=== PATIENT | male | born 1945 ===

== ENCOUNTER 2020-09-14 02:27 | Inpatient (IN) | payer MEDICARE, OTHER ==
[~2020-09-14] VITALS: Ht 177.8 cm; Wt 75.9 kg
[2020-09-14] MEDS ORDERED: FOLI-130 PO (03:11)
[2020-09-14] MEDS ORDERED: ASPI-1450 PO (03:11)
[2020-09-14] MEDS ORDERED: GABA-1201 PO (03:11)
[2020-09-14] MEDS ORDERED: ATOR10TA84 PO (03:11)
[2020-09-14] MEDS ORDERED: RISP2TAB45 PO (03:11)
[2020-09-14] MEDS ORDERED: MULT-1203 PO (03:11)
[2020-09-14] MEDS ORDERED: APIX5TAB PO (03:11)
[2020-09-14] MEDS ORDERED: DIVA-111 PO (03:11)
[2020-09-14] MEDS ORDERED: METH10 PO (03:11)
[2020-09-14] MEDS ORDERED: TIMO.25OS OU (03:11)
[2020-09-14 03:22] LABS: COVID AG,FIA SOURCE NASOPHARYNGEAL
[2020-09-14] MEDS ORDERED: 0.9% SODIUM CHLORIDE 10 ML SYRINGE IVP PRN ×2 (03:30→07:45)
[2020-09-14 04:30] LABS: BASOPHILS % (AUTO) 0.6 % (0.0-2.0); HEMATOCRIT 36.5 % (41-53); HEMOGLOBIN 11.9 g/dL (13.5-17.5); MEAN CORPUSCULAR HGB CONC 32.5 G/dL (31.0-37.0); MEAN CORPUSCULAR VOLUME 80 fL (80-100); MONOCYTES # (AUTO) 0.8 K/uL (0.1-1.0); MONOCYTES % (AUTO) 8.9 % (2.0-9.0); NEUTROPHILS # (AUTO) 6.3 K/uL (1.8-7.7); NEUTROPHILS % (AUTO) 72.5 % (40.0-70.0); PLATELET COUNT (AUTO) 318 K/uL (150-450); RED BLOOD CELL COUNT(AUTO) 4.56 MIL/uL (4.50-5.90); RED CELL DISTRIBUTION WIDTH 16.6 % (11.5-14.5)
[2020-09-14 04:43] LABS: ANION GAP 6 mmol/L (8-16); CALCIUM, TOTAL 9.5 mg/dL (8.8-10.5); CARBON DIOXIDE 33 mmol/L (22-29); CHLORIDE 98 mmol/L (98-107); CREATININE 1.04 mg/dL (0.60-1.30); GLUCOSE,RANDOM 96 mg/dL (70-110); POTASSIUM 4.2 mmol/L (3.5-5.1); SODIUM SERUM 137 mmol/L (136-145); UREA NITROGEN, BLOOD 22 mg/dL (7-18)
[2020-09-14 04:47] LABS: GLOMERULAR FILTR. RATE CALC > 60 mL/min (>60)
[2020-09-14 04:49] LABS: LACTIC ACID 1.2 mmol/L (0.4-2.0)
[2020-09-14 04:55] LABS: D-DIMER 0.47 mg/L FEU (0.00-0.50); INR 1.1 (0.9-1.1); PROTHROMBIN TIME 11.4 SEC (9.4-11.6)
[2020-09-14 05:04] LABS: ALANINE AMINOTRANSFERASE 15 U/L (12-78); ALBUMIN 3.5 g/dL (3.4-5.0); ALKALINE PHOSPHATASE 136 U/L (46-116); ASPARTATE AMINOTRANSFERASE 15 U/L (15-37); BILIRUBIN,TOTAL 0.3 mg/dL (0.1-1.0); C-REACTIVE PROTEIN QUANT 1.44 mg/dL (0.00-0.30); FERRITIN 32 ng/mL (26-388); LACTATE DEHYDROGENASE 184 U/L (85-227); TOTAL PROTEIN, SERUM 8.4 g/dL (6.4-8.2)
[2020-09-14] MEDS ORDERED: ONDANSETRON HCL 4 MG/2 ML VIAL IVP PRN ×2 (07:45→12:15)
[2020-09-14] MEDS ORDERED: ACETAMINOPHEN 325 MG TABLET PO PRN ×2 (07:45→12:15)
[2020-09-14 10:27] LABS: ABG A-A DIFF O2 93.8 mmHg (10-20.0); ABG BASE EXCESS 7.4 mmol/L (-2.0-3.0); ABG HCO3 30.1 mmol/L (22.0-26.0); ABG METHEMOGLOBIN 0.2 % (0.0-1.5); ABG OXYGEN CONTENT 16.3 mL/dL (15.0-23.0); ABG OXYGEN SATURATION 94.7 % (95.0-98.0); ABG OXYHEMOGLOBIN 94.5 % (94.0-100.0); ABG PCO2 51 mmHg (35-45); ABG PH 7.418 (7.35-7.450); ABG TOTAL HEMOGLOBIN 12.2 G/dL (12.0-18.0); PO2, ARTERIAL BG 75.1 mmHg (75.0-83.0); SOURCE, BLOOD GAS ARTERIAL; TEMPERATURE, FAHRENHEIT, BG 98.8 FAHREN (96.0-98.6)
[2020-09-14 10:28] LABS: O2 DEVICE,BLOOD GAS CANNULA (ROOM AIR); SITE, BLOOD GAS RT BRACHIAL
[2020-09-14] MEDS ORDERED: ALBUTEROL SULFATE HFA 90 MCG/PUFF 8 GM INHALER IH PRN (12:15)
[2020-09-14] MEDS ORDERED: MAGNESIUM HYDROXIDE SUSPENSION 30 ML UDCUP PO PRN (12:15)
[2020-09-14] MEDS ORDERED: HYDROCODONE/ACETAMINOPHEN 5-325 MG TABLET PO PRN (12:15)
[2020-09-14] MEDS ORDERED: BISACODYL 10 MG RECTAL RECTAL SUPPOSITORY PR PRN (12:15)
[2020-09-14] MEDS ORDERED: ZOLPIDEM TARTRATE 5 MG TABLET PO PRN (12:15)
[2020-09-14] MEDS ORDERED: MORPHINE SULFATE 2 MG/ML SYRINGE IVP PRN (12:15)
[2020-09-14] MEDS ORDERED: IOHEXOL 350 MG/ML 75 ML VIAL ONE (12:27)
[2020-09-14] MEDS ORDERED: SODIUM CHLORIDE 0.9% 100 ML ONE (12:27)
[2020-09-14] MEDS: AZITHROMYCIN 500 MG TABLET PO SCH (13:37)
[2020-09-14] MEDS: GABAPENTIN 400 MG CAPSULE PO SCH ×2 (17:22→21:59)
[2020-09-14] MEDS: ASCORBIC ACID 500 MG TABLET PO SCH ×2 (17:22→22:58)
[2020-09-14] MEDS: DIVALPROEX SODIUM 250 MG DR TABLET PO SCH (21:59)
[2020-09-14 22:54] VITALS: BP 139/77
[2020-09-14] MEDS: RisperiDONE 2 MG TABLET PO SCH (22:57)
[2020-09-14] MEDS: TIMOLOL MALEATE 0.25% 5 ML OPHTHALMIC SOLUTION OU SCH (22:57)
[2020-09-14] MEDS: THIAMINE 100 MG/ML 2 ML VIAL IVP SCH (22:57)
[2020-09-14] MEDS: ZINC SULFATE 220 MG CAPSULE PO SCH (22:58)
[2020-09-14] MEDS: DOCUSATE SODIUM 100 MG CAPSULE PO SCH (22:58)
[2020-09-14] MEDS: ATORVASTATIN CALCIUM 10 MG TABLET PO SCH (22:58)
[2020-09-14] MEDS: APIXABAN 5 MG TABLET PO SCH (22:58)
[2020-09-15 04:22] VITALS: BP 125/58
[2020-09-15 06:25] LABS: BASOPHILS % (AUTO) 0.7 % (0.0-2.0); EOSINOPHILS % (AUTO) 4.7 % (1.0-6.0); HEMATOCRIT 35.5 % (41-53); HEMOGLOBIN 11.4 g/dL (13.5-17.5); LYMPHOCYTES # (AUTO) 1.4 K/uL (1.0-4.8); LYMPHOCYTES % (AUTO) 17.2 % (22.0-44.0); MEAN CORPUSCULAR HEMOGLOBIN 25.9 pg (26.0-34.0); MEAN CORPUSCULAR HGB CONC 32.1 G/dL (31.0-37.0); MEAN CORPUSCULAR VOLUME 81 fL (80-100); MONOCYTES # (AUTO) 0.8 K/uL (0.1-1.0); MONOCYTES % (AUTO) 10.6 % (2.0-9.0); NEUTROPHILS # (AUTO) 5.3 K/uL (1.8-7.7); NEUTROPHILS % (AUTO) 66.8 % (40.0-70.0); PLATELET COUNT (AUTO) 297 K/uL (150-450); RED BLOOD CELL COUNT(AUTO) 4.41 MIL/uL (4.50-5.90); RED CELL DISTRIBUTION WIDTH 16.8 % (11.5-14.5)
[2020-09-15 07:04] LABS: ALANINE AMINOTRANSFERASE 13 U/L (12-78); ALKALINE PHOSPHATASE 130 U/L (46-116); ANION GAP 4 mmol/L (8-16); ASPARTATE AMINOTRANSFERASE 17 U/L (15-37); BILIRUBIN,TOTAL 0.3 mg/dL (0.1-1.0); C-REACTIVE PROTEIN QUANT 1.44 mg/dL (0.00-0.30); CALCIUM, TOTAL 9.2 mg/dL (8.8-10.5); CARBON DIOXIDE 31 mmol/L (22-29); CHLORIDE 100 mmol/L (98-107); CREATININE 1.02 mg/dL (0.60-1.30); FERRITIN 29 ng/mL (26-388); GLOMERULAR FILTR. RATE CALC > 60 mL/min (>60); GLUCOSE,RANDOM 89 mg/dL (70-110); POTASSIUM 4.3 mmol/L (3.5-5.1); SODIUM SERUM 135 mmol/L (136-145); TOTAL PROTEIN, SERUM 7.3 g/dL (6.4-8.2); UREA NITROGEN, BLOOD 20 mg/dL (7-18)
[2020-09-15 07:40] VITALS: BP 126/70
[2020-09-15] MEDS: AZITHROMYCIN 500 MG TABLET PO SCH (09:05)
[2020-09-15] MEDS: ZINC SULFATE 220 MG CAPSULE PO SCH ×2 (09:05→20:46)
[2020-09-15] MEDS: DOCUSATE SODIUM 100 MG CAPSULE PO SCH ×2 (09:05→20:45)
[2020-09-15] MEDS: ASCORBIC ACID 500 MG TABLET PO SCH ×3 (09:05→20:46)
[2020-09-15] MEDS: ASPIRIN 81 MG CHEWABLE TABLET PO SCH (09:06)
[2020-09-15] MEDS: APIXABAN 5 MG TABLET PO SCH ×2 (09:06→20:46)
[2020-09-15] MEDS: PANTOPRAZOLE SODIUM 40 MG DR TABLET PO SCH (09:06)
[2020-09-15] MEDS: METHADONE HCL 10 MG TABLET PO SCH (09:06)
[2020-09-15] MEDS: GABAPENTIN 400 MG CAPSULE PO SCH ×3 (09:06→20:46)
[2020-09-15] MEDS: THIAMINE 100 MG/ML 2 ML VIAL IVP SCH ×2 (09:07→21:41)
[2020-09-15] MEDS ORDERED: IPRATROPIUM BROMIDE HFA 17 MCG/PUFF 12.9 GM INHALER IH PRN (10:15)
[2020-09-15] MEDS: TIMOLOL MALEATE 0.25% 5 ML OPHTHALMIC SOLUTION OU SCH ×2 (11:13→20:47)
[2020-09-15] MEDS: MethylPREDNISolone SOD SUCC 125 MG/2 ML VIAL IVP SCH ×2 (11:14→18:36)
[2020-09-15 12:23] VITALS: BP 114/60
[2020-09-15 16:18] VITALS: BP 103/75
[2020-09-15] MEDS: IPRATROPIUM BROMIDE HFA 17 MCG/PUFF 12.9 GM INHALER IH SCH (16:22)
[2020-09-15] MEDS: BENZONATATE 100 MG CAPSULE PO SCH ×2 (16:22→20:45)
[2020-09-15 20:13] VITALS: BP 107/52
[2020-09-15] MEDS: GuaiFENesin SR 600 MG ER TABLET PO SCH (20:45)
[2020-09-15] MEDS: ATORVASTATIN CALCIUM 10 MG TABLET PO SCH (20:45)
[2020-09-15] MEDS: DIVALPROEX SODIUM 250 MG DR TABLET PO SCH (20:46)
[2020-09-15] MEDS: RisperiDONE 2 MG TABLET PO SCH (21:42)
[2020-09-16 00:25] VITALS: BP 107/63
[2020-09-16] MEDS: MethylPREDNISolone SOD SUCC 125 MG/2 ML VIAL IVP SCH ×3 (00:25→11:46)
[2020-09-16 05:54] VITALS: BP 101/54
[2020-09-16 06:18] LABS: EOSINOPHILS % (AUTO) 0 % (1.0-6.0); HEMATOCRIT 32.9 % (41-53); HEMOGLOBIN 10.7 g/dL (13.5-17.5); LYMPHOCYTES # (AUTO) 0.7 K/uL (1.0-4.8); LYMPHOCYTES % (AUTO) 7.3 % (22.0-44.0); MEAN CORPUSCULAR HEMOGLOBIN 25.8 pg (26.0-34.0); MEAN CORPUSCULAR HGB CONC 32.4 G/dL (31.0-37.0); MEAN CORPUSCULAR VOLUME 80 fL (80-100); MONOCYTES # (AUTO) 0.1 K/uL (0.1-1.0); MONOCYTES % (AUTO) 1.1 % (2.0-9.0); NEUTROPHILS # (AUTO) 8.8 K/uL (1.8-7.7); PLATELET COUNT (AUTO) 317 K/uL (150-450); RED BLOOD CELL COUNT(AUTO) 4.13 MIL/uL (4.50-5.90); RED CELL DISTRIBUTION WIDTH 16.7 % (11.5-14.5)
[2020-09-16 06:44] LABS: NEUTROPHILS % (AUTO) 91.6 % (40.0-70.0)
[2020-09-16 06:49] LABS: ALBUMIN 2.8 g/dL (3.4-5.0); BILIRUBIN,TOTAL 0.3 mg/dL (0.1-1.0); C-REACTIVE PROTEIN QUANT 1.01 mg/dL (0.00-0.30); CALCIUM, TOTAL 8.7 mg/dL (8.8-10.5); CREATININE 1.31 mg/dL (0.60-1.30); POTASSIUM 4.5 mmol/L (3.5-5.1)
[2020-09-16] MEDS: IPRATROPIUM BROMIDE HFA 17 MCG/PUFF 12.9 GM INHALER IH SCH ×3 (08:14→16:46)
[2020-09-16] MEDS: ZINC SULFATE 220 MG CAPSULE PO SCH ×2 (08:14→21:05)
[2020-09-16] MEDS: METHADONE HCL 10 MG TABLET PO SCH (08:14)
[2020-09-16] MEDS: ASPIRIN 81 MG CHEWABLE TABLET PO SCH (08:14)
[2020-09-16] MEDS: DOCUSATE SODIUM 100 MG CAPSULE PO SCH ×2 (08:14→21:05)
[2020-09-16] MEDS: AZITHROMYCIN 500 MG TABLET PO SCH (08:14)
[2020-09-16] MEDS: GABAPENTIN 400 MG CAPSULE PO SCH ×3 (08:15→21:05)
[2020-09-16] MEDS: GuaiFENesin SR 600 MG ER TABLET PO SCH ×2 (08:15→21:05)
[2020-09-16] MEDS: APIXABAN 5 MG TABLET PO SCH ×2 (08:15→21:05)
[2020-09-16] MEDS: ASCORBIC ACID 500 MG TABLET PO SCH ×3 (08:15→21:05)
[2020-09-16] MEDS: BENZONATATE 100 MG CAPSULE PO SCH ×3 (08:15→21:05)
[2020-09-16] MEDS: PANTOPRAZOLE SODIUM 40 MG DR TABLET PO SCH (08:15)
[2020-09-16] MEDS: THIAMINE 100 MG/ML 2 ML VIAL IVP SCH (08:16)
[2020-09-16] MEDS: TIMOLOL MALEATE 0.25% 5 ML OPHTHALMIC SOLUTION OU SCH ×2 (08:17→21:12)
[2020-09-16 08:38] VITALS: BP 109/65
[2020-09-16 11:34] VITALS: BP 93/56
[2020-09-16 16:05] VITALS: BP 109/61
[2020-09-16] MEDS ORDERED: PredniSONE 20 MG TABLET PO SCH (18:00)
[2020-09-16 20:16] VITALS: BP 135/76
[2020-09-16] MEDS: DIVALPROEX SODIUM 250 MG DR TABLET PO SCH (21:05)
[2020-09-16] MEDS: THIAMINE 100 MG TABLET PO SCH (21:05)
[2020-09-16] MEDS: RisperiDONE 2 MG TABLET PO SCH (21:05)
[2020-09-16] MEDS: ATORVASTATIN CALCIUM 10 MG TABLET PO SCH (21:05)
[2020-09-17] VITALS (7 sets, daily range): BP systolic 114–136; BP diastolic 62–71
[2020-09-17 06:43] LABS: BASOPHILS % (AUTO) 0.2 % (0.0-2.0); EOSINOPHILS % (AUTO) 0 % (1.0-6.0); HEMATOCRIT 33.8 % (41-53); LYMPHOCYTES # (AUTO) 0.8 K/uL (1.0-4.8); LYMPHOCYTES % (AUTO) 5.7 % (22.0-44.0); MEAN CORPUSCULAR HGB CONC 32.6 G/dL (31.0-37.0); MEAN CORPUSCULAR VOLUME 80 fL (80-100); MONOCYTES # (AUTO) 0.8 K/uL (0.1-1.0); MONOCYTES % (AUTO) 5.2 % (2.0-9.0); PLATELET COUNT (AUTO) 343 K/uL (150-450); RED BLOOD CELL COUNT(AUTO) 4.24 MIL/uL (4.50-5.90); RED CELL DISTRIBUTION WIDTH 16.6 % (11.5-14.5)
[2020-09-17 06:51] LABS: NEUTROPHILS % (AUTO) 88.9 % (40.0-70.0)
[2020-09-17 07:15] LABS: ALBUMIN 2.8 g/dL (3.4-5.0); BILIRUBIN,TOTAL 0.2 mg/dL (0.1-1.0); C-REACTIVE PROTEIN QUANT 0.44 mg/dL (0.00-0.30); CREATININE 1.2 mg/dL (0.60-1.30); POTASSIUM 4.6 mmol/L (3.5-5.1)
[2020-09-17] MEDS: BENZONATATE 100 MG CAPSULE PO SCH ×3 (09:01→22:09)
[2020-09-17] MEDS: AZITHROMYCIN 500 MG TABLET PO SCH (09:01)
[2020-09-17] MEDS: ASCORBIC ACID 500 MG TABLET PO SCH ×3 (09:01→22:08)
[2020-09-17] MEDS: DOCUSATE SODIUM 100 MG CAPSULE PO SCH ×2 (09:01→22:06)
[2020-09-17] MEDS: PANTOPRAZOLE SODIUM 40 MG DR TABLET PO SCH (09:01)
[2020-09-17] MEDS: ASPIRIN 81 MG CHEWABLE TABLET PO SCH (09:01)
[2020-09-17] MEDS: PredniSONE 20 MG TABLET PO SCH (09:01)
[2020-09-17] MEDS: METHADONE HCL 10 MG TABLET PO SCH (09:01)
[2020-09-17] MEDS: THIAMINE 100 MG TABLET PO SCH ×2 (09:01→22:09)
[2020-09-17] MEDS: GuaiFENesin SR 600 MG ER TABLET PO SCH ×2 (09:02→22:06)
[2020-09-17] MEDS: GABAPENTIN 400 MG CAPSULE PO SCH ×3 (09:02→22:10)
[2020-09-17] MEDS: APIXABAN 5 MG TABLET PO SCH ×2 (09:02→22:07)
[2020-09-17] MEDS: ZINC SULFATE 220 MG CAPSULE PO SCH ×2 (09:06→22:10)
[2020-09-17] MEDS: TIMOLOL MALEATE 0.25% 5 ML OPHTHALMIC SOLUTION OU SCH ×2 (09:07→22:16)
[2020-09-17] MEDS: IPRATROPIUM BROMIDE HFA 17 MCG/PUFF 12.9 GM INHALER IH SCH ×4 (09:07→23:57)
[2020-09-17] MEDS: RisperiDONE 2 MG TABLET PO SCH (22:07)
[2020-09-17] MEDS: DIVALPROEX SODIUM 250 MG DR TABLET PO SCH (22:07)
[2020-09-17] MEDS: ATORVASTATIN CALCIUM 10 MG TABLET PO SCH (22:09)
[2020-09-18 04:55] VITALS: BP 133/70
[2020-09-18 06:18] LABS: EOSINOPHILS % (AUTO) 0.3 % (1.0-6.0); HEMATOCRIT 33.3 % (41-53); HEMOGLOBIN 10.9 g/dL (13.5-17.5); LYMPHOCYTES # (AUTO) 1.3 K/uL (1.0-4.8); LYMPHOCYTES % (AUTO) 15.3 % (22.0-44.0); MEAN CORPUSCULAR HEMOGLOBIN 26.2 pg (26.0-34.0); MEAN CORPUSCULAR HGB CONC 32.8 G/dL (31.0-37.0); MEAN CORPUSCULAR VOLUME 80 fL (80-100); MONOCYTES % (AUTO) 11.9 % (2.0-9.0); NEUTROPHILS # (AUTO) 6.2 K/uL (1.8-7.7); NEUTROPHILS % (AUTO) 72.5 % (40.0-70.0); PLATELET COUNT (AUTO) 315 K/uL (150-450); RED BLOOD CELL COUNT(AUTO) 4.17 MIL/uL (4.50-5.90); RED CELL DISTRIBUTION WIDTH 16.8 % (11.5-14.5)
[2020-09-18 07:02] LABS: ALANINE AMINOTRANSFERASE 17 U/L (12-78); ALBUMIN 2.9 g/dL (3.4-5.0); ALKALINE PHOSPHATASE 108 U/L (46-116); ANION GAP 4 mmol/L (8-16); ASPARTATE AMINOTRANSFERASE 18 U/L (15-37); BILIRUBIN,TOTAL 0.3 mg/dL (0.1-1.0); C-REACTIVE PROTEIN QUANT 0.26 mg/dL (0.00-0.30); CALCIUM, TOTAL 8.9 mg/dL (8.8-10.5); CARBON DIOXIDE 32 mmol/L (22-29); CHLORIDE 99 mmol/L (98-107); CREATININE 1.12 mg/dL (0.60-1.30); FERRITIN 29 ng/mL (26-388); GLUCOSE,RANDOM 85 mg/dL (70-110); POTASSIUM 4.5 mmol/L (3.5-5.1); SODIUM SERUM 135 mmol/L (136-145); TOTAL PROTEIN, SERUM 6.9 g/dL (6.4-8.2); UREA NITROGEN, BLOOD 38 mg/dL (7-18)
[2020-09-18 07:07] LABS: GLOMERULAR FILTR. RATE CALC > 60 mL/min (>60)
[2020-09-18 08:06] VITALS: BP 119/78
[2020-09-18] MEDS: AZITHROMYCIN 500 MG TABLET PO SCH (08:16)
[2020-09-18] MEDS: DOCUSATE SODIUM 100 MG CAPSULE PO SCH (08:16)
[2020-09-18] MEDS: ASCORBIC ACID 500 MG TABLET PO SCH (08:16)
[2020-09-18] MEDS: BENZONATATE 100 MG CAPSULE PO SCH (08:17)
[2020-09-18] MEDS: GuaiFENesin SR 600 MG ER TABLET PO SCH (08:17)
[2020-09-18] MEDS: THIAMINE 100 MG TABLET PO SCH (08:17)
[2020-09-18] MEDS: METHADONE HCL 10 MG TABLET PO SCH (08:17)
[2020-09-18] MEDS: ZINC SULFATE 220 MG CAPSULE PO SCH (08:17)
[2020-09-18] MEDS: GABAPENTIN 400 MG CAPSULE PO SCH (08:18)
[2020-09-18] MEDS: APIXABAN 5 MG TABLET PO SCH (08:18)
[2020-09-18] MEDS: PredniSONE 20 MG TABLET PO SCH (08:18)
[2020-09-18] MEDS: ASPIRIN 81 MG CHEWABLE TABLET PO SCH (08:18)
[2020-09-18] MEDS: TIMOLOL MALEATE 0.25% 5 ML OPHTHALMIC SOLUTION OU SCH (08:19)
[2020-09-18] MEDS: PANTOPRAZOLE SODIUM 40 MG DR TABLET PO SCH (08:19)
[2020-09-18] MEDS: IPRATROPIUM BROMIDE HFA 17 MCG/PUFF 12.9 GM INHALER IH SCH (08:19)
[2020-09-18 11:23] VITALS: BP 133/68
== END 2020-09-18 14:19 | DRG 189 ==
LOC: EMS 02:30 → 5N 16:57
PROVIDERS: ADMIT Internal Medicine; ATTEND Internal Medicine
DX: J96.01 Acute respiratory failure with hypoxia (principal); E87.1 Hypo-osmolality and hyponatremia; F11.20 Opioid dependence, uncomplicated; I69.351 Hemiplegia and hemiparesis following cerebral infarction affecting right dominant side; Z20.822 Contact with and (suspected) exposure to COVID-19; J96.02 Acute respiratory failure with hypercapnia; D64.9 Anemia, unspecified; E78.5 Hyperlipidemia, unspecified; Z85.118 Personal history of other malignant neoplasm of bronchus and lung; J43.9 Emphysema, unspecified; D69.6 Thrombocytopenia, unspecified; D72.810 Lymphocytopenia; E11.9 Type 2 diabetes mellitus without complications; F17.210 Nicotine dependence, cigarettes, uncomplicated; I11.0 Hypertensive heart disease with heart failure; I50.9 Heart failure, unspecified; R79.82 Elevated C-reactive protein (CRP); D63.0 Anemia in neoplastic disease; F10.20 Alcohol dependence, uncomplicated; J47.9 Bronchiectasis, uncomplicated; Z79.01 Long term (current) use of anticoagulants
CPT/HCPCS: 36600; 71045; 71260; 80053; 82728; 82805; 83605; 83615; 84145; 85025; 85379; 85610; 86140; 87040; 87081; 93005; 99285; A9575; J2930; J3411; J3535; J7050; 36415-L1; 36415-TC; U0003